=== PATIENT | female | born 1980 | race Hispanic/Latino ===

== ENCOUNTER 2016-05-29 17:55 | Emergency (ER) | payer MEDICARE ==
--- NOTE | 2016-05-29 20:44 | XRay Report ---
FINAL REPORT PROCEDURE: XR FOOT 2V LT TECHNIQUE: Three views of the left 5th toe are obtained HISTORY: Left foot injury pain COMPARISON: No prior studies are available for comparison. FINDINGS: There is a fracture of the proximal shaft of the proximal phalanx of the left 5th toe. This does not involve the MTP joint. No dislocation is seen. Soft tissue swelling is seen. Small calcaneal plantar spur is seen on lateral view. IMPRESSION: Minimally displaced fracture is seen of the proximal shaft of the proximal phalanx of the left 5th toe.
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
[2016-05-29] MEDS ORDERED: NORCO 10/325 PO ONE (22:30)
[2016-05-29 23:20] VITALS: BP 130/80
== END 2016-05-29 23:24 | disposition home or self-care (01) ==
LOC: ED 17:55
DX: S92.512A Displaced fracture of proximal phalanx of left lesser toe(s), initial encounter for closed fracture (principal); G89.29 Other chronic pain; Z88.0 Allergy status to penicillin; Z88.5 Allergy status to narcotic agent; Z88.8 Allergy status to other drugs, medicaments and biological substances; W22.8XXA Striking against or struck by other objects, initial encounter; Y93.89 Activity, other specified; Y99.8 Other external cause status; Y92.098 Other place in other non-institutional residence as the place of occurrence of the external cause
CPT/HCPCS: 99284

== ENCOUNTER 2017-03-14 11:52 | Emergency (ER) | payer MEDICARE ==
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
[2017-03-14 19:59] LABS: Bacteria,Urine 1+ /HPF (Negative); Bilirubin,Urine NEG (Negative); Blood,Urine SM (Negative); Color,Urine Straw (Yellow); Nitrite,Urine NEG (Negative); Protein,Urine <15 mg/dL mg/dL (Negative); Urobilinogen,Urine < 2.0 mg/dL (<2.0)
[2017-03-14 20:00] LABS: HCG Qualitative,Urine Negative (Negative)
[2017-03-14 21:32] VITALS: BP 123/80
== END 2017-03-14 20:43 | disposition home or self-care (01) ==
LOC: ED 11:52
DX: N30.00 Acute cystitis without hematuria (principal); R42 Dizziness and giddiness; F17.200 Nicotine dependence, unspecified, uncomplicated; Z88.0 Allergy status to penicillin; Z88.5 Allergy status to narcotic agent; Z88.8 Allergy status to other drugs, medicaments and biological substances
CPT/HCPCS: 81001; 81025; 87116; 87430; 99283